=== PATIENT | female | born 1955 | race Hispanic/Latino ===

== ENCOUNTER → 2017-09-27 | Outpatient (CLI) | payer MEDICARE ==
[~2017-09-27] MED LIST: B-121000 MCG PO; LEVOTHYROXINE50 MCG PO; LEXAPRO10 MG PO; NEXIUM40 MG PO; SANDOSTATIN0.1 MG/ML IM/IV; TRAZODONE HCL50 MG PO
--- NOTE | 2017-09-27 15:24 | Diagnostic Imaging Report ---
EXAMINATION: MRI of the brain without contrast. HISTORY: Syncope, prior trauma, headaches COMPARISON: None. TECHNIQUE: Sagittal T2; axial DWI, T2, FLAIR, T1-IR, T2 gradient echo; coronal FLAIR. IMAGE QUALITY: Adequate. FINDINGS: Parenchyma: 1. A few latter white matter hyperintense foci (less than 5), most likely age appropriate minimal chronic microvascular ischemic changes. Otherwise no areas of abnormal signal intensity in the brain parenchyma 2. No mass, hemorrhage, acute or chronic infarcts. Skull: Unremarkable. Vessels: Expected flow voids present in the major arteries and dural sinuses. Extra-axial spaces: No abnormal signal intensity or mass effect. Brain volume: Within normal limits for age. Ventricles: No hydrocephalus or displacement. Foramen magnum: Unremarkable. Sella: Unremarkable. Paranasal / mastoid sinuses: No significant inflammatory disease. IMPRESSION: No intracranial abnormalities to explain the patient's symptoms, particularly no evidence of infarct or hemorrhage. Signed by: Dr. Jolene Nolen M.D. on 09/27/2017 3:21 PM
== END ==
LOC: MRI 10:09
PROVIDERS: ATTEND Family Medicine
DX: G44.329 Chronic post-traumatic headache, not intractable (principal)
CPT/HCPCS: 70551

== ENCOUNTER → 2018-10-14 | Outpatient (CLI) | payer MEDICARE ==
--- NOTE | 2018-10-14 12:58 | Diagnostic Imaging Report ---
EXAMINATION: CHEST 2 VIEWS INDICATION: Chronic cough. COMPARISON: None FINDINGS: TUBES and LINES: None. LUNGS: Lungs are well inflated. There is no evidence of pneumonia or pulmonary edema. PLEURA: No pleural effusion or pneumothorax. HEART AND MEDIASTINUM: The cardiomediastinal silhouette is unremarkable. There is elevation of the right hemidiaphragm. Atherosclerotic calcifications of the aortic arch. BONES AND SOFT TISSUES: No acute osseous abnormality. Surgical clips project over the left axilla and lower hemithorax. UPPER ABDOMEN: No free air under the diaphragm. Surgical clips project over the right upper quadrant. IMPRESSION: No acute radiographic abnormality. Nonspecific elevation of the right hemidiaphragm. If there is clinical concern for phrenic nerve palsy, fluoroscopic Sniff test may be obtained for further evaluation. Signed by: Dr. Sisi Burdick MD on 10/14/2018 12:54 PM
== END ==
LOC: RAD 12:04
PROVIDERS: ATTEND Family Medicine
DX: R05 Cough (principal)
CPT/HCPCS: 71046

== ENCOUNTER → 2020-07-11 | Outpatient (CLI) | payer MEDICARE | LOC: MRI 09:45 | PROVIDERS: ATTEND Family Medicine | DX: R51.9 Headache, unspecified (principal); Z85.05 Personal history of malignant neoplasm of liver; Z86.39 Personal history of other endocrine, nutritional and metabolic disease | CPT/HCPCS: 70551 ==

== ENCOUNTER 2025-02-26 15:36 | Emergency (ER) | payer MEDICARE ==
[~2025-02-26] VITALS: Ht 157.5 cm; Wt 64.4 kg
[2025-02-26 15:40] VITALS: TEMP 98.6
[2025-02-26] MEDS: SODIUM CHLORIDE 0.9% 1000ML 1,000 ML IV STA (16:25)
[2025-02-26 16:27] LABS: BASOPHILS % 0.6 % (0.0-1.0); EOSINOPHILS % 1.9 % (0.0-6.0); LYMPHOCYTES % 26.9 % (18.0-39.1); MONOCYTES % 7.3 % (4.4-11.3); NEUTROPHILS % 63.0 % (38.7-80.0); RED CELL DISTRIBUTION WIDTH 12.9 % (11.7-14.4)
[2025-02-26 16:30] LABS: LEUKOCYTE ESTERASE ,URINE SMALL (NEGATIVE); PROTEIN,URINE DIPSTICK NEGATIVE (NEGATIVE); URINE UROBILINOGEN 0.2 mg/dL (0.2 - 1)
[2025-02-26 16:43] LABS: EST GLOMERULAR FILTRATION RATE 55 ML/MIN (>=60)
[2025-02-26] MEDS ORDERED: METRONIDAZOLE 500MG/NS 100ML 100 ML IV SCH (18:45)
[2025-02-26 19:06] VITALS: PULSE 61; RESP 16
[2025-02-26] MEDS ORDERED: Morphine 2mg Syringe 2 MG/ML SYR IV PRN (19:15)
[2025-02-26] MEDS ORDERED: SODIUM CHLORIDE FLUSH 10 ML SYR INJ PRN (19:15)
[2025-02-26] MEDS ORDERED: ONDANSETRON HCL INJ 2MG/ML 2ML 2 MG/ML VIAL IV PRN (19:15)
[2025-02-26] MEDS ORDERED: CIPRO500 MG PO (20:26)
[2025-02-26] MEDS ORDERED: METRONIDAZOLE500 MG PO (20:26)
[2025-02-26] MEDS ORDERED: IOPAMIDOL 370 MG/ML 100 ML INFUS..BTL INJ ONE (21:55)
[2025-02-26 21:57] VITALS: BP 120/84; PULSE 60; RESP 16; TEMP 98.4; O2SAT 98
== END 2025-02-26 19:10 | disposition left against medical advice (07) ==
LOC: ER 15:38 → UNDOADMOB 19:10 → ERHOLD 19:10 → ER 19:10 → UNDODISOB 20:32
DX: R11.2 Nausea with vomiting, unspecified (principal); K52.9 Noninfective gastroenteritis and colitis, unspecified; R10.30 Lower abdominal pain, unspecified
CPT/HCPCS: 36415; 74177; 80053; 81001; 82550; 83690; 84484; 85025; 99284; J0696; J7030; Q9967; G0378